=== PATIENT | male | born 1955 | race Caucasian/White ===

== ENCOUNTER 2017-09-24 07:52 | Inpatient (IN) | payer OTHER ==
[~2017-09-24] VITALS: Ht 167.6 cm; Wt 90.3 kg
--- NOTE | 2017-09-24 07:56 | ED PSYCHIATRIC COMPLAINT ---
See Addendum History of Present Illness General Chief Complaint: Psychiatric Related Complaint Stated Complaint: BIBA FOR +SI Source: patient, EMS Exam Limitations: poor historian Allergies Coded Allergies: No Known Allergies (09/24/17) Reconcile Medications No Known Home Medications Triage Nurses Notes Reviewed? yes HPI: This is a 62-year-old male with history of stroke approximately 2 years ago, not on medications for at least 2-6 months who presents by EMS from somewhere in [place]. Patient states that he was lying on the side of the road and called the ambulance because he wanted to kill himself. Patient states he has been homeless for about a year now but has been staying here and there. He states that he doesn't want to live in this miserable world anymore. No history of treated anxiety or depression. He has never been suicidal before. He states he has not seen his doctor in over 2 months and doesn't even recall who it is. He is not on any daily medications. He states he lives with chronic pain in his right arm and right leg. Today he was at his sister's house but left early in the morning while his sister and her were sleeping. He then called for help from the road. Denies any EtOH or substance abuse. (Landry GARCÍA,Raven) Vital Signs & Intake/Output Vital Signs & Intake/Output Vital Signs Date Time Temp Pulse Resp B/P B/P Pulse O2 O2 Flow FiO2 Mean Ox Delivery Rate 09/26 1843 97.2 78 18 106/60 98 Room Air 09/26 1608 97.0 74 18 118/64 97 Room Air 09/26 1305 96.9 77 18 101/58 91 09/26 1125 96.9 74 18 91/58 91 09/26 1030 97.5 78 18 133/79 09/26 0923 97.5 78 18 133/79 95 09/26 0657 96.4 55 18 100/63 96 Room Air 09/26 0229 96.6 52 20 91/59 09/26 0032 97.4 62 20 84/48 97 Room Air 09/25 2226 98.5 56 16 125/82 94 Room Air (Diego GARCÍA,Zan) Past History Travel History Traveled to [place] past 21 day No Medical History Any Pertinent Medical History? see below for history Neurological: CVA Surgical History Surgical History: non-contributory Psychosocial History Who do you live with Sister Services at Home None What is your primary language Occitan Family History Hx Contributory? No (Raven Alatorre MD) Review of Systems Review of Systems Constitutional: Denies: chills, fever. EENTM: Reports: no symptoms. Respiratory: Reports: no symptoms. Cardiovascular: Denies: chest pain. GI: Reports: no symptoms. Genitourinary: Reports: no symptoms. Musculoskeletal: Reports: see HPI, muscle pain. Skin: Reports: no symptoms. Neurological/Psychological: Reports: no symptoms. Hematologic/Endocrine: Denies: bruising, bleeding, polyuria, polydipsia. Immunologic/Allergic: Reports: no symptoms. All Other Systems: Reviewed and Negative (Raven Alatorre MD) Physical Exam Physical Exam General Appearance: well developed/nourished, alert, awake, mild distress Head: atraumatic Eyes: Bilateral: PERRL, EOMI. Ears, Nose, Throat: normal pharynx, normal ENT inspection, hearing grossly normal Neck: normal inspection, supple Respiratory: normal breath sounds Cardiovascular: regular rate/rhythm Gastrointestinal: soft, non-tender Extremities: normal range of motion Neurological/Psychiatric: awake, alert, depressed affect Appearance/Memory/Insight: disheveled, impaired insight Behavoir/Eye Contact/Speech: cooperative, normal speech, good eye contact Thoughts/Hallucinations: no apparent hallucination Skin: intact, normal color, warm/dry SAD PERSONS SAD PERSONS Response Value Male Sex? yes 1 Age <19 or >45 years? yes 1 Depression/Hopelessness? yes 2 Single//? yes 1 Social Support? has support 0 Total 5 SAD PERSONS Done? yes (Raven Alatorre MD) Progress Differential Diagnosis: DEPRESSION, ANXIETY, SUICIDAL IDEATION, SUBSTANCE ABUSE, CHRONIC PAIN Hand-Off Endorsed To: Aris GARCÍA,Parminder Grider Endorsed Time: 1912 Pending: consult (CRISIS DISPO), other (Raven Alatorre MD) Plan of Care: Orders Procedure Date/time Status Straight Cath 09/26 0841 Active URINALYSIS 09/26 0841 Complete PROSTATIC SPECIFIC ANTIGEN 09/26 0841 Complete Continuous Observation Monitor 09/26 0730 Active Vital Signs 09/25 2244 Active Current Medications Sig/Halima Start time Last Medication Dose Stop Time Status Admin Nicotine 21 MG DAILY 09/26 1533 UNVr 09/26 (Nicoderm) 1842 Pregabalin 100 MG BID 09/25 2199 UNVr 09/26 (Lyrica) 1030 Trazodone HCl 100 MG QPM 09/25 2199 UNVr 09/25 (Desyrel) 2240 Atorvastatin Calcium 40 MG 1700 09/25 1700 UNVr 09/26 (Lipitor) 1842 Baclofen 10 MG TID 09/24 2199 UNVr 09/26 (Lioresal 10MG 184 Tablet) Aspirin 81 MG DAILY 09/24 2044 UNVr 09/26 (Aspirin) 1030 Duloxetine HCl 20 MG DAILY 09/24 2043 UNVr 09/26 (Cymbalta) 1030 Lisinopril 10 MG DAILY 09/24 2043 UNVr 09/26 (Prinivil) 1030 Laboratory Tests 09/26/17 0903: Total PSA 2.69 09/26/17 0857: Urine Color YEL, Urine Clarity CLEAR, Urine pH 6.5, Ur Specific [place] 1.020, Urine Protein NEG, Urine Ketones NEG, Urine Nitrite NEG, Urine Bilirubin NEG, Urine Urobilinogen 0.2, Ur Leukocyte Esterase NEG, Ur Microscopic EXAM NOT REQUIRED, Urine Hemoglobin NEG, Urine Glucose NEG LABX, UTOX, CRISIS CONSULTATION. 09/25/2017 7:15:37 AM Patient signed out to me by Dr. Cortez. Pending crisis reevaluation and disposition [address] WEST. GABAPENTIN INCREASED TO 600 TID, LYRICA 100 BID, TRAZADONE FOR SLEEP. (Landry GARCÍA,Raven) Hand-Off Endorsed To: Raven Alatorre MD Endorsed Time: 0700 Pending: other (bed search) Comments: Epic records reviewed from last visit [id number] medicine consultation. Medications ordered as previously prescribed. (Diego GARCÍA,Zan) Hand-Off Endorsed To: Oralia GARCÍA,Rahat Fallon Endorsed Time: 0700 Pending: consult (Aris GARCÍA,Parminder Grider) Comments: 09/26/2017 7:31:20 AM patient signed out to me by Dr. Hurst at shift change management lead. 09/26/2017 8:39:59 AM I was asked to see patient regarding difficulty urinating. Patient states that the urine is dribbling out and he is urinating only a small amount. I asked if he had any history of prostate enlargement but he does not know since he hasn't seen a primary care physician for quite a while. Digital rectal examination reveals enlarged but otherwise normal consistency prostate. I suspect BPH. 09/26/2017 8:34:28 PM patient signed out to Dr. Mcbride at shift change management lead. (Oralia GARCÍA,Rahat Fallon) Departure Departure Condition: Stable Referrals: Daisha Healy MD (PCP/Family) Departure Forms: Customer Survey General Discharge Information Prescriptions: Current Visit Scripts No Known Home Medications (Landry GARCÍA,Raven) Departure Disposition: STILL A PATIENT Clinical Impression Primary Impression: Depression with suicidal ideation Secondary Impressions: Chronic pain disorder, Homeless (Diego GARCÍA,Zan) Departure Comments 09/26/17 8:15 PM The patient was signed out to me by Dr. Barton. He is pending disposition by crisis. (Rahat Mcbride DO)
[2017-09-24 08:48] LABS: ABSOLUTE BASOPHIL COUNT 0 /CUMM (0.0-0.2); ABSOLUTE EOSINOPHIL COUNT 0.2 /CUMM (0.0-0.7); ABSOLUTE GRANULOCYTE CT 4.8 /CUMM (1.4-6.5); ABSOLUTE LYMPH COUNT 1.5 /CUMM (1.2-3.4); ABSOLUTE MONOCYTE COUNT 0.7 /CUMM (0.10-0.60); BASOPHIL % 0.5 % (0.0-2.0); EOSINOPHIL % 2.9 % (0-5); GRANULOCYTE % 66.3 % (42.2-75.2); HEMATOCRIT 51.8 % (42-52); MEAN CORPUSCULAR HGB 30.2 PG (27.0-31.0); MEAN CORPUSCULAR HGB CONC 33.1 G/DL (33.0-37.0); MEAN CORPUSCULAR VOLUME 91.3 FL (80.0-94.0); MEAN PLATELET VOLUME 9.9 FL (7.4-10.4); PLATELET COUNT 170 /CUMM (130-400); RBC DISTRIBUTION WIDTH 14.8 % (11.5-14.5); RED BLOOD CELL CT 5.68 /CUMM (4.70-6.10); WHITE BLOOD CELL COUNT 7.3 /CUMM (4.8-10.8)
--- NOTE | 2017-09-24 14:35 | ED PSYCH CRISIS CONSULTATION ---
See Addendum Crisis Consult Basic Assessment Date of Consult: 09/24/17 Responsible Person/Accompanied By: self Insurance Authorization: Insurance #1: Insurance name: MASSIEL SAUNDERS Phone number: Policy number: [id number] Group number: Authorization number: ED Provider: Patient's ED Provider: Raven Alatorre MD Primary Care Physician: Patient's PCP: Daisha Healy MD PCP's Current Psychiatrist: none Chief Complaint: Psychiatric Related Complaint Patient's Quote: "I still want to kill myself" Present Illness: Patient is a 62 year old male BIBA this morning after he called the 911 saying he wanted to kill himself while lying on the ground. Pt reports he was staying with his sister and left this morning while his sister and her were still sleeping. He reports he was walking around and starting having thoughts to kill himself. Crisis met with patient who continues to express suicidal ideation with a plan to walk into traffic or to jump off a bridge. He reports he is homeless but has been staying with his sister. Crisis called and left message with sister, Leslie Sanchez ([phone]). He reports he lost everything. He lost his apartment because he wouldnt pay his rent because he went into the hospital for another matter and lost his social security disability. He reports he hasnt been able to go down to the social security office to get it reinstated because he is in chronic pain. He reports he had a stroke several years ago. During assessment, pt was complaining of pain 10 out of 10 on his right side. Per nursing notes he was medicated with Tylenol at noon. He was also medicated with Nuerontin and Lyrica. Pt became tearful and stated I want to hurt myself Im very depressed intake at several years ago but decided he needed to be closer to home so he was referred to [facility] for IOP. It does not appear that the pt followed up. Pt reports he used to live with his brother in [place] who is very sick with Cancer. Pt reports no friends; his parents are , no significant other and no children. Pt denies illicit drug use and ETOH. Utox was negative. BAL was zero. Patient re-iterated that he was in a lot of pain and wanted to . Crisis consulted with Dr. Shah. She has some concerns regarding if he is medically stable to be on an inpatient unit. Will consult with Dr. Alatorre in the ED regarding this. At this time, patient will require acute psychiatric inpatient hospitalization and a bed search will be conducted. Patient's Address: [address] [place] [address] Other Phone Number: Who Do You Live With? Sister (reports homeless, stays w/ sis) Family/Informants Interviewed: Left message for sister [phone] (Leslie Benítezi) Allergies - Coded Allergies: No Known Allergies (09/24/17) Current Medications - No Known Home Medications Laboratory Results: Laboratory Tests 09/24/17 0826: Urine Opiates Screen < 100.00, Methadone Screen < 40, Barbiturate Screen < 60, Ur Phencyclidine Scrn < 6.00, Amphetamines Screen < 100, U Benzodiazepines Scrn > 800 H, Urine Cocaine Screen < 50, Urine Cannabis Screen < 5.00 09/24/17 0822: Anion Gap 11, Estimated GFR > 60, BUN/Creatinine Ratio 18.6, Glucose 95, Calcium 9.6, Total Bilirubin 0.8, AST 28, ALT 36, Alkaline Phosphatase 68, Total Protein 7.5, Albumin 4.4, Globulin 3.1, Albumin/Globulin Ratio 1.4, CBC w Diff NO MAN DIFF REQ, RBC 5.68, MCV 91.3, MCH 30.2, MCHC 33.1, RDW 14.8 H, MPV 9.9, Gran % 66.3, Lymphocytes % 21.3, Monocytes % 9.0, Eosinophils % 2.9, Basophils % 0.5, Absolute Granulocytes 4.8, Absolute Lymphocytes 1.5, Absolute Monocytes 0.7 H, Absolute Eosinophils 0.2, Absolute Basophils 0, Serum Alcohol < 10.0 (Sonya Patterson LCSW) Addendum Note Addendum psychology clinician reassessed pt on the evening shift. Pt continues to endorse suicidal thoughts and has a plan. "Yes I feel worthless ". Pt is alert and orented x3. Pt reporting symptoms of depression and chronic pain, "I'm very depressed". Pt denies substance and alcohol use. Pt denies having psychotic thoughts, and said "I just don't want to live anymore". Pt denies a history of psychiatry hospitalization and no attempted suicides in the past. Pt states he had a stroke 3 years ago and since then his life has changed. 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 "I can't make the money I use to make and so my life has gotten a lot worst". Pt recently lost his apartment and Social Security and unable to live with his younger sister Leslie. Pt meet criteria for inpatient admission and staff will complete a bed search. (Maverick YOUNGBLOOD,Swati) Past History Past Medical History Neurological: CVA EENT: NONE Cardiovascular: NONE Respiratory: NONE Gastrointestinal: NONE Hepatic: NONE Renal: NONE Musculoskeletal: NONE Psychiatric: NONE Endocrine: NONE Blood Disorders: NONE Cancer(s): NONE PROFESSOR OF APOLOGETICS/Reproductive: NONE Past Surgical History Surgical History: non-contributory Psychosocial History Strengths/Capabilities: called 911 himself to get help Physical Limitations (Interventions): patient is unsteady of his feet, required assistance from sister to ambulate to consultation room to meet Psychiatric Treatment History Psych Treatment Psychiatric Treatment No Inpatient Treatment No Outpatient Treatment No (intake for [facility] 2013) Substance Use/Abuse History Drug Use/Abuse Substances Used/Abused No Substance Abuse Treatment Substance Abuse Treatment Past Substance Abuse [place] No Inpatient Treatment No Outpatient Treatment No (Sonya Patterson LCSW) Current Mental Status Mental Status Orientation: Current situation, Person Affect: Hopeless, Sad Speech: Soft Neuro-vegetative: Concentration Poor, Energy Decreased, Helpless, Sleep Disturbance Appearance Appearance- Dress/Hygiene: pt presents in hospital scrubs with a poke tattoo of his initials on his left forearm that he says did to himself when he was 13 Behaviors Thought Process: Tangential Thought Content: WNL Memory: Impaired Insight: Fair SI/HI Risk Assessment Past Suicidal Ideation/Attempts No Current Suicidal Ideation/Att Yes Past Homicidal Ideation/Att: No Current Homicidal Ideation/Attempts No Degree of Intent: Plan, States Intent (walk into traffic, jump bridge) Danger To: Self Risk Factors: chronic/serious med cond., lack of outcome concern, male, limited support Lethality Ratin PTSD Checklist PTSD Done? patient declined ED Management Sitter: Yes Restraints: No (Sonya Patterson LCSW) DSM5/PS Stressors/Medical Prob Diagnosis' (DSM 5, Stressors, Medical): F32.9 Unspecified Depression Homelessness Hx of Stroke (Sonya Patterson LCSW) Departure Disposition Psych Medical Clearance Date: 09/24/17 Medically Cleared at: 1400 Time Started: 1400 Time Ended: 1430 Psychiatrist Consulted: Dr. Shah Date Disposition Established: 09/24/17 Time Disposition Established: 144 Plan for Disposition - Modality: Bed Search Referrals Daisha Healy MD (PCP/Family) (Sonya Patterson LCSW)
--- NOTE | 2017-09-25 17:01 | ED PSYCHIATRIST/APRN CONSULT ---
Psychiatrist/PREFINISH OPERATOR ED Consult Assessment and Plan: ED CRISIS PROGRESS NOTE SUBJECTIVE: Pt in bed in the dark in Crisis bed, pleasant and polite with public relations writer. Interviewed with Crisis SW. Pt reports that he is "very very depressed " and "cannot think of any reason to live." Pt stated he is having contant nerve pain in his RUE and RLE, worsening since CVA 2 years ago. +SI with plan to walk into traffic. Pt states he is having racing thoughts and increased guilt that interfere with sleep. Pt interested in retarting medications. Risks /benefits of meds discussed, pt in agreement. Pt able to eat. No HI/AVH/SIB. Supportive therapy and psycheducation provided. Pt denies ssx PTSD, denies index trauma. OBJECTIVE: Per nursing, pt did well overnight without any acute events. Pt remained in behavioral control, adherent with staff instructions and medications. Pt trending toward bardycardia and hypotension, ED notified. Current Medications Sig/Halima Start time Last Medication Dose Route Stop Time Status Admin Amitriptyline HCl 25 MG BID PRN 09/24 2044 UNVr PO Aspirin 0 .STK-MED ONE 09/25 1147 DC PO Aspirin 81 MG DAILY 09/24 2044 UNVr 09/25 PO 1150 Atorvastatin Calcium 40 MG 1700 09/25 1700 UNVr 09/25 PO 1823 Baclofen 10 MG TID 09/24 2199 UNVr 09/25 PO 1823 Duloxetine HCl 20 MG DAILY 09/24 2043 UNVr 09/25 PO 1150 Gabapentin 0 .STK-MED ONE 09/25 2210 DC PO Gabapentin 600 MG Q8 09/25 2199 UNVr PO Gabapentin 0 .STK-MED ONE 09/25 1444 DC PO Gabapentin 0 .STK-MED ONE 09/25 0619 DC PO Gabapentin 300 MG Q8 09/24 1400 DCr 09/25 PO 1442 Lisinopril 0 .STK-MED ONE 09/25 1147 DC PO Lisinopril 10 MG DAILY 09/24 2043 UNVr 09/25 PO 1150 Nicotine 0 .STK-MED ONE 09/25 1147 DC TOP Nicotine 21 MG ONCE ONE 09/25 1115 DC 09/25 TOP 09/25 1116 1150 Pregabalin 0 .STK-MED ONE 09/25 2207 DC PO Pregabalin 100 MG BID 09/25 2199 UNVr PO Trazodone HCl 0 .STK-MED ONE 09/25 2208 DC PO Trazodone HCl 100 MG QPM 09/25 2199 UNVr PO Laboratory Tests 09/24/17 0826: Urine Opiates Screen < 100.00, Methadone Screen < 40, Barbiturate Screen < 60, Ur Phencyclidine Scrn < 6.00, Amphetamines Screen < 100, U Benzodiazepines Scrn > 800 H, Urine Cocaine Screen < 50, Urine Cannabis Screen < 5.00 09/24/17 0822: Anion Gap 11, Estimated GFR > 60, BUN/Creatinine Ratio 18.6, Glucose 95, Calcium 9.6, Total Bilirubin 0.8, AST 28, ALT 36, Alkaline Phosphatase 68, Total Protein 7.5, Albumin 4.4, Globulin 3.1, Albumin/Globulin Ratio 1.4, CBC w Diff NO MAN DIFF REQ, RBC 5.68, MCV 91.3, MCH 30.2, MCHC 33.1, RDW 14.8 H, MPV 9.9, Gran % 66.3, Lymphocytes % 21.3, Monocytes % 9.0, Eosinophils % 2.9, Basophils % 0.5, Absolute Granulocytes 4.8, Absolute Lymphocytes 1.5, Absolute Monocytes 0.7 H, Absolute Eosinophils 0.2, Absolute Basophils 0, Serum Alcohol < 10.0 Vital Signs Date Time Temp Pulse Resp B/P B/P Pulse O2 O2 Flow FiO2 Mean Ox Delivery Rate 09/25 2225 98.5 56 16 125/82 94 Room Air 09/25 1329 98.3 50 20 109/55 95 Room Air 09/25 1126 97.3 54 18 126/66 97 Room Air 09/25 0834 97.5 54 20 100/67 95 Room Air 09/25 0616 98.1 88 18 109/67 94 Room Air 09/25 0102 97.5 60 18 125/70 98 Room Air MSE: GENERAL: Alert and oriented, good eye contact, polite and pleasant, in hospital scrubs, appeared down, verging on tearfulness at times, SPEECH: Moderate rate and volume, normal prosody, fluent MOTOR: Right sided hemiplegia, right facial droop. Limping gait, No tics, tremors, stereotypy. MOOD: ""really really depressed" AFFECT: quite sad, but brightened at times, mood congruent, constricted range , non-labile, well related THOUGHT PROCESS: Logical, linear and goal-directed THOUGHT CONTENT: +SI with plan to walk into traffic, no HI/AVH/SIB, no apparent grandiosity, paranoia, but ruminative COGNITION: Mildly impaired d/t ruminations, racing thoughts JUDGMENT: fair INSIGHT: fair ASSESSMENT: 62 yo SM with depression, s/p CVA 2 years ago with right hemiplegia , homeless, presenting via EMS for SI and lying in street. Today, pt continues to be very depressed and hopeless, feeling useless, but feels safe in the ED. 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 Pt in agreement with starting meds for neuropathic pain, depression and insomnia. Pt hypotenive and bradycardic; Dr Hurst notified and will recheck and monitor. Pt signed VOL, bed search ongoing. -vol, maintain safety in crisis bed, bed search, vs q4h -duloxetine 20mg po qam, lyrica 100 mg po bid, gabapentin 600 mg po bid, trazodone 100mg qhs -dc amytriptyline -monitor hypotension and bradycardia, on recheck HR 56, 125/82, VS q4h while awake -sister is willing to visit if needed -may need PT consult to obtain walker/cane, please d/w medical ED -reg diet, encourage hydration
--- NOTE | 2017-09-26 16:06 | ED PSYCHIATRIST/APRN CONSULT ---
Psychiatrist/SALES CONSULTANT RESIDENTIAL MANAGER ED Consult Assessment and Plan: binding bench worker's notes reviewed. Dr. Shah's note reviewed. Case discussed with crisis workers on this shift. Patient seen at 3:21 PM. He is a 62-year-old single white male who presented to the emergency room on 09/24/17. Patient reports he is here because he is suicidal and does not want to live anymore. Reports that his brother moved out 1 month ago, leaving the patient homeless. This brother reportedly has cancer and moved in with his child and girlfriend. Patient states that he had a nervous breakdown. He states he does not know what to do, where to go or whom to speak to. He has been feeling depressed for about 2 months. Past psychiatric history: Outpatient: None. Inpatient: None. Suicides attempts: None. Substance history: Tobacco at 1 pack per day. Denies use of alcohol or drugs. Medications prior to admission: Patient reports he was taking Percocet 10 mg 3 times a day. He does not know the names of his other medications but presumably he was on pregabalin, Lipitor, baclofen, aspirin, duloxetine and lisinopril based on current medication list. He apparently was on amitriptyline but this was not continued. Allergies: No known allergies. Past medical history: CVA about 3 years ago with right hemiplegia. Possibly hypertension. Family history: Mother and father at age 59 from strokes. Denies family history of mental illness, substance abuse or suicides. Social history: Homeless. Has no children. 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 Had an 11th grade education. Reports history of several arrests when younger but does not recall what they were for. Mental status examination: The patient is a white male dressed in [employer] hospital garb. He seems to have some right facial droop. He appears to have some weakness in his right arm. He is calm, polite and cooperative. There is no psychomotor agitation or retardation. Speech is normal in volume, rate and tone. Affect is calm and depressed. Reports his right arm and leg are killing him. Reports mood as "I don't want to be here." Rates sad mood about 7/10 and anxiety 8/10. Feels hopeless, helpless and worthless. Denies feeling guilty. Reports suicidal ideation. Denies homicidal ideation. Denies auditory and visual hallucinations. Denies paranoid ideation and magical cuellar. Insight is fair. Judgment is poor. There is no apparent thought disorder or delusions. The patient is oriented 3 except he gave the date as Tuesday, 09/22 or 04/2018. Reports the place is a hospital in [place]. Cognition is grossly intact. Sleep: "I don't." Appetite: "okay, but the food here is terrible." Reports he keeps getting served grilled cheese (I've asked staff to address this). Energy: alright, not what it used to be. IMPRESSION: Major depression. Hx CVA. The patient remains suicidal. Continue bed search.
--- NOTE | 2017-09-27 14:20 | ED PSYCHIATRIST/APRN CONSULT ---
Psychiatrist/MULTIPLE DRILL OPERATOR ED Consult Assessment and Plan: The patient is a 62 years old single male who was brought into the emergency room on a police evaluation paper on September 24, 2017. He was picked up by the police when found wandering and stating that he was suicidal. We reviewed the crisis clinicians' notes, the emergency department reports, Dr. Shah's and Dr. Head's notes. We interviewed the patient. He appears as a medium height and weight male, with thinning hair, right facial droop, thinner arm on the right with deformed right hand(claw like) , sequelae from a cerebrovascular accident approximately 3 years prior to this interview. The patient appeared tired, disheveled, was cooperative with the interview. Speech is soft, well articulated, goal directed. He is complaining of tremendous pain on the right side of his body, stating that he used to be on opioid analgesics with fair effect. He was unable to obtain more prescriptions because the physician giving them to him lost their license. The patient reports feeling very depressed, worthless, useless, hopeless and helpless. 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 This came out of nowhere and it left me like this, so I cannot do anything. I cannot help myself." He expresses worrying about his future, he says he does not have close relationships, he is single and childless, he used to live with his brother who moved to his son's house being that he is suffering from terminal cancer. The patient is currently homeless even though he can stay for short periods of time with his sister. The patient continues to endorse suicidal ideation, does not have a plan, was able to contract for safety while in the hospital. The patient has good attention and concentration, intact memory, average fund of knowledge and is considered to be of average intelligence He had been in outpatient psychiatric services on and off, currently taking Cymbalta,Trazodone and lyrica. He suffers from hypercholesterolemia, hypertension, BPH and receives treatment for it as seen in his medication claims profile. The patient agrees that he needs stabilization in a safe environment. He denies use of alcohol and/or drugs. Diagnosis: Major depressive disorder, recurrent, severe Stressors include financial, housing situation, poor social support, chronic, severe medical illness. Medical problems include sequelae from CVA, hypertension, hypercholesterolemia, benign prostatic hypertrophy. His current GAF is 30% The patient will be admitted to the Inpatient Psychiatry.
--- NOTE | 2017-09-27 18:12 | IP CRISIS DIAG ASSESS PSYCH ---
Diagnostic Assessment Basic Assessment Insurance Authorization: Insurance #1: Insurance name: [employer] Phone number: Policy number: [id number] Group number: Authorization number: [id number] Primary Care Physician: Patient's PCP: Daisha Healy MD PCP's Patient's Quote: "I still want to kill myself" Present Illness: Patient is a 62 year old male BIBA this morning after he called the 911 saying he wanted to kill himself while lying on the ground. Pt reports he was staying with his sister and left this morning while his sister and her were still sleeping. He reports he was walking around and starting having thoughts to kill himself. Crisis met with patient who continues to express suicidal ideation with a plan to walk into traffic or to jump off a bridge. He reports he is homeless but has been staying with his sister. Crisis called and left message with sister, Leslie Sanchez ([phone]). He reports he lost everything. He lost his apartment because he wouldnt pay his rent because he went into the hospital for another matter and lost his social security disability. He reports he hasnt been able to go down to the social security office to get it reinstated because he is in chronic pain. He reports he had a stroke several years ago. During assessment, pt was complaining of pain 10 out of 10 on his right side. Per nursing notes he was medicated with Tylenol at noon. He was also medicated with Nuerontin and Lyrica. Pt became tearful and stated I want to hurt myself Im very depressed intake at several years ago but decided he needed to be closer to home so he was referred to [facility] for IOP. It does not appear that the pt followed up. Pt reports he used to live with his brother in [place] who is very sick with Cancer. Pt reports no friends; his parents are , no significant other and no children. Pt denies illicit drug use and ETOH. Utox was negative. BAL was zero. Patient re-iterated that he was in a lot of pain and wanted to . Crisis consulted with Dr. Shah. She has some concerns regarding if he is medically stable to be on an inpatient unit. Will consult with Dr. Alatorre in the ED regarding this. At this time, patient will require acute psychiatric inpatient hospitalization and a bed search will be conducted. Patient's Address: [address] [place] [id number] Other Phone Number: Who Do You Live With? Sister (reports homeless, stays w/ sis) Feel Safe Where You Live? Yes Feel Safe in Your Relationship Yes Marital Status: single Do You Have Children? No Primary Language? [place] Language(s) Spoken At Home: [place] Family/Informants Interviewed: Left message for sister [phone] (Leslie Sanchez) Allergies - Coded Allergies: No Known Allergies (09/24/17) Current Medications - No Known Home Medications Consequences of Psych Med Use: pt not currently in treatment Toxicology Screen Completed? Yes Results: positive (benzos) Past History Past Surgical History Surgical History non-contributory Abuse/Trauma History Trauma History/Current Trauma: Denies Psychosocial History Strengths/Capabilities: called 911 himself to get help Physical Limitations (Interventions): patient is unsteady of his feet, required assistance from sister to ambulate to consultation room to meet Psychiatric Treatment History Psych Treatment Psychiatric Treatment No Inpatient Treatment No Outpatient Treatment No (intake for [facility] 2014) Risk Factors: chronic/serious med cond., lack of outcome concern, male, limited support Substance Use/Abuse History Drug Use/Abuse minimum 12mo Hx Substances Used/Abused No Substance Abuse Treatment Substance Abuse Treatment Past Substance Abuse TX No Inpatient Treatment No Outpatient Treatment No Education History Highest Level of Education: high school/GED Preferred Learning Style: experiential Current Mental Status Mental Status Orientation: Current situation, Person Affect: Hopeless, Sad Speech: Soft Neuro-vegetative: Concentration Poor, Energy Decreased, Helpless, Sleep Disturbance Appearance Appearance- Dress/Hygiene: pt presents in hospital scrubs with a poke tattoo of his initials on his left forearm that he says did to himself when he was 13 Behaviors Thought Process: Tangential Thought Content: WNL Memory: Impaired Insight: Fair SI/HI Risk Assessment - Minimum 6mo History- Past Suicidal Ideation/Attempts No Current Suicidal Ideation/Att Yes Past Homicidal Ideation/Att: No Current Homicidal Ideation/Attempts No Degree of Intent: Plan, States Intent (walk into traffic, jump bridge) Danger To: Self Risk Factors: chronic/serious med cond., lack of outcome concern, male, limited support Lethality Ratin Needs/Init TX Plan/Goals: Psychiatric evaluation Medication assessment Individual, family and group meeting Coordinated discharge planning AUDIT-C Questionnaire: AUDIT-C Questionnaire: Response Value ETOH use in the past year Never 0 # drinks typical/day Doesn't Drink 0 6 or > drinks per occasion Never 0 Total 0 DSM5/PS Stressors/Medical Prob Diagnosis' (DSM 5, Stressors, Medical): F32.9 Unspecified Depression Homelessness Hx of Stroke Current GAF: 20 Comments: pt reports pervasive anhedonia since suffering stroke
[2017-09-27 19:12] VITALS: BP 133/73
[2017-09-27 19:54] VITALS: BP 133/73
[2017-09-28 07:50] VITALS: BP 128/72
[2017-09-28 12:03] VITALS: BP 102/74
[2017-09-28 12:23] VITALS: BP 102/74
--- NOTE | 2017-09-28 13:25 | CPS PROVIDER INIT ASMT PSYCH ---
Psychiatric Admission Chute Operator's Note Reviewed: Yes Patient Seen and Examined: Yes Identifying Information: The patient is a 62-year-old white male who was brought into the emergency room by ambulance after he called 911 Chief Complaint: The patient reportedly called 911 because and told the electric arc furnace operator that he wanted to kill himself. When he arrived in the emergency room his chief complaint was still "I still want to kill myself." Reaction to Hospitalization: Of suicide History of Present Illness Onset of Illness: Thoughts of suicide. Reportedly the patient was staying with his sister. He left the morning of his presentation to the emergency room while his sister and her were still sleeping. He reported that he was walking around and started having thoughts of wanting to kill himself. And that's when he called 911. Circumstances Leading to Admission: Thoughts of suicide looks like in the context of homelessness Problem(s) Justifying Need for Admission: Thoughts of suicide Past Psychiatric History Past Diagnosis(es)- if any: The patient reported that he has never been inpatient in a psychiatric unit before and he was not under the care of a psychiatrist. Past Precipitating Factors- if any: Homelessness - Include inpatient and outpatient treatment Treatment History: From the patient's reported looks like he had very limited history of psychiatric treatment before. History of Suicide Attempts or Gestures The patient denied any history of attempting suicide in the past Substance Abuse History: The patient denied abusing alcohol and denied abusing any substances. The patient urine toxicology screen was negative for opiates negative for barbiturates negative for amphetamines negative for PCP negative for cocaine and negative for cannabis but it was positive for benzodiazepines Allergies: Coded Allergies: No Known Allergies (09/24/17) Home Med List: The patient reported that he was not on medications at home - Include any medical condition(s) that may - impact the patient's recovery/remission Past Medical History: The patient reported that he has history of stroke and history of chronic severe pain in his right side Past History Medical History Neurological: CVA EENT: NONE Cardiovascular: NONE Respiratory: NONE Gastrointestinal: NONE Hepatic: NONE Renal: NONE Musculoskeletal: NONE Psychiatric: NONE Endocrine: NONE Blood Disorders: NONE Cancer(s): NONE JEWEL FLAT SURFACER/Reproductive: NONE History of MRSA: No History of VRE: No History of CDIFF: No Isolation History: Standard Influenza Vaccine: 05/15/17 Surgical History Surgical History: non-contributory Psychiatric Family/Social Hx Family History Psychiatric Illness: The patient reports that he does not know if there is anybody in his family who has a psychiatric illness Substance Use: denied Suicides: unknown Social History Living Situation: The patient is currently homeless he was last living with his sister Significant Relationships (family/friends): The patient has a brother but it's not clear how close they are he reports that his sister does not HAVE ANYTHING TO DO WITH HIM. Education: Unknown Vocation/Occupation: Unemployed currently Legal: the patient denied legal entanglements Healthly Behaviors Screening Tobacco Screening Tobacco Use from ED Docu: Current Daily Use Daily Tobacco Use Amount/Type: => 5 Cigarettes daily - If tobacco counseling indicated - the following topics are required. - #1 Recognizing dangerous situations. - #2 Coping Skills. - #3 Basic information about quitting. Status of Tobacco Cessation Counseling: #1, #2 AND #3 Completed Cessation Med Status Nicotine Patch Ordered Alcohol Screening - ETOH screen POS if BAL >=80 or Audit-C>= M4/F3 Audit-C Score from Diag Assess: 0 Blood Alcohol Level: Lab Serum Alcohol < 10.0 MG/DL 09/24/17 0822 Alcohol Use Screening Results: Neg per Audit C &/or BAL - If ETOH counseling indicated - the following topics are required. - #1 Express concern about the patient's - drinking at unhealthy levels, include informing - of national norms for moderate drinking: - men <= 14 drinks/week, max 4 drinks/occasion - women <= 7 drinks/week, max 3 drinks/occasion - #2 Providing feedback, including linking alcohol to - negative physical effects (liver injury, hypertension) - negative emotional effects (relationship problems and - depression) - negative occupational consequences (reduced work - performance) - #3 Advising the patient to abstain from alcohol or - to drink below national norms for moderate drinking - (as listed above). Status of ETOH Use Counseling: N/A B/C NO ETOH Use Metabolic Screening - Screen if on a Neuroleptic Medication - Metabolic screening should include: - Blood Pressure, BMI, Glucose or Hgb A1c, & a - Lipid profile from within the past 365 days. Metabolic Screening ([X]) Not Applicable, patient not on a neuroleptic. Exam and Plan Mental Status Examination Ambulation Status: Steady gait Appearance: Appropriate Attitude towards examiner: Calm and cooperative Psychomotor activity: Normal psychomotor activity Behavior: No abnormal behaviors Quality of speech: Normal speech, not pressured, not slurred Affect: Good range of affect Mood: Depressed Suicidal Ideation: Still having on and off thoughts of suicide Homicidal Ideation: Denied having thoughts of homicide Hallucinations: Denied hallucinations Paranoid/Delusional Material: Denied feeling paranoid, there were no delusions Difficulties with thought organization: No difficulties with thought organization Insight: Reasonable insight Judgment: Reasonable judgment Orientation: Oriented to time place and person Cognition: Reasonable attention and concentration and good information processing Memory Function: No gross deficits in his short-term memory Estimate of intellectual functioning: Average intelligence Assets/Strengths Patient Identified Assets/Strengths: Patient seems to be honest and likable Impression/Plan Impression and Plan: 62-year-old white male who presented to the emergency room or thoughts of suicide it seems that he might be currently homeless. He reported that he is never had inpatient psychiatric hospitalizations and never had a suicide attempts in the past. - Include all active medical diagnosis that require tx DSM 5 Diagnosis(es): Unspecified depressive disorder - Initial Tx Plan for Active Psych & Medical Conditions Treatment Plan: Inpatient psychiatric care and Safety checks every 15 minutes Nursing assessments, vital signs, and education by nursing staff And group therapy and milieu therapy by therapy staff Aftercare and discharge planning by social work staff The patient's mental status and medications will be evaluated daily by the psychiatrist The patient's Cymbalta was increased to 40 mg daily I added 1 mg of Ativan at bedtime to help the trazodone with the insomnia problem I added Reese act sodium 75 mg twice daily reduce trazodone because of the pain that he is still complaining about - Factors that would help patient function - in a less restrictive setting. Factors: Stable housing
--- NOTE | 2017-09-28 14:54 | History & Physical ---
General Information and HPI MD Statement: I have seen and personally examined GLENDY BURNETT and documented this H&P. The patient is a 62 year old M who presented with a patient stated chief complaint of suicidal ideation/depression. Source of Information: patient Exam Limitations: no limitations History of Present Illness: 62-year-old male with past medical history significant for CVA, hyperlipidemia admitted to Inpatient Psychiatry because he had suicidal ideation. Patient has been feeling very depressed. He used to live with his brother who now has moved out of the apartment. Patient has no house or place to live. He has a history of stroke about 2 years ago and since then he has right-sided weakness as well as pain. He used to be on some pain medications but now because he is not following up with his doctor, he cannot take any pain medications. Patient otherwise denies any other pains. He denies any urinary complaints. He does complete of some constipation. He is over all feeling very depressed. Allergies/Medications Allergies: Coded Allergies: No Known Allergies (09/24/17) Home Med list No Known Home Medications Past History Travel History Traveled to [place] past 21 day No Medical History Neurological: CVA EENT: NONE Cardiovascular: NONE Respiratory: NONE Gastrointestinal: NONE Hepatic: NONE Renal: NONE Musculoskeletal: NONE Psychiatric: NONE Endocrine: NONE Blood Disorders: NONE Cancer(s): NONE BEHAVIORAL SCIENCE CHAIR/Reproductive: NONE History of MRSA: No History of VRE: No History of CDIFF: No Isolation History: Standard Influenza Vaccine: 05/15/17 Surgical History Surgical History: non-contributory Past Family/Social History Family History Relations & Conditions if any BROTHER Relation not specified for: FH: cancer Psychosocial History Services at Home: None ETOH Use: denies use Illicit Drug Use: denies illicit drug use Review of Systems Review of Systems Constitutional: Reports: see HPI. EENTM: Reports: see HPI. Cardiovascular: Reports: see HPI. Respiratory: Reports: see HPI. GI: Reports: see HPI. Musculoskeletal: Reports: see HPI. Skin: Reports: see HPI. Neurological/Psychological: Reports: see HPI. Exam & Diagnostic Data Last 24 Hrs of Vital Signs/I&O Vital Signs Date Time Temp Pulse Resp B/P B/P Pulse O2 O2 Flow FiO2 Mean Ox Delivery Rate 09/28 1223 62 102/74 09/28 1203 62 102/74 09/28 0922 53 128/72 09/28 0750 95.6 53 128/72 09/27 1954 97.8 66 133/73 09/27 1912 97.8 66 133/73 09/27 1553 97.0 50 20 108/55 93 Room Air Intake & Output 09/28 1600 09/28 0800 09/28 0000 Intake Total Output Total Balance Patient 199 lb Weight Physical Exam General Appearance Alert, Oriented X3, Cooperative, No Acute Distress Skin No Rashes HEENT PERRLA Neck Supple Cardiovascular Regular Rate, Normal S1, Normal S2 Lungs Clear to Auscultation Abdomen Normal Bowel Sounds, Soft, No Tenderness Neurological Exam Findings: 4/5 strength on rue and rle. Cranial Nerves II through XII: intact Extremities No Edema Last 24 Hrs of Labs/Yemi: Laboratory Tests 09/26 09/26 0903 0857 Chemistry Total PSA (0.00 - 4.00 ng/mL) 2.69 Urines Urine Color (YEL,AMB,STR) YEL Urine Clarity (CLEAR) CLEAR Urine pH (5.0 - 8.0) 6.5 Ur Specific [place] (1.001 - 1.035) 1.020 Urine Protein (NEG,<30 MG/DL) NEG Urine Ketones (NEG) NEG Urine Nitrite (NEG) NEG Urine Bilirubin (NEG) NEG Urine Urobilinogen (0.1 - 1.0 EU/dl) 0.2 Ur Leukocyte Esterase (NEG) NEG Ur Microscopic EXAM NOT REQUIRED Urine Hemoglobin (NEG) NEG Urine Glucose (N MG/DL) NEG Assessment/Plan Assessment: 62-year-old male with past history significant for CVA about 2 years ago, lipidemia, chronic pain, depression admitted to Inpatient Psychiatry with suicidal ideation and increasing depression. Psych management will leave up to psychiatry. Patient is combining of pain in the right hand and right otic symmetry. Patient already on Lyrica. He was started Voltaren. I will defer this to psychiatry to see if they want to add Percocet. Patient used to take Percocet previously according to him. I will also check his lipid profile. Patient already on statin As Ranked By This Provider Problem List: 1. Anxiety 2. Depression with suicidal ideation 3. Chronic pain disorder 4. History of CVA (cerebrovascular accident) 5. Homeless Miscellaneous Miscellaneous Documentation Attending Case Discussed With: Ayde Fuentes M.D. Primary Care Physician: Daisha Healy MD Patient sees these Specialists unknown Level of Patient Care: KRYSTAL Childers
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
[2017-09-28 16:00] VITALS: BP 110/64
--- NOTE | 2017-09-28 16:51 | SOCIAL WORKER PROG NOTE PSYCH ---
Social Work Progress Note Progress Note 11:49am This process description writer met with patient. He reported that he had a stroke about 2 years ago, significantly impacting his independence and ability to work. Patient reported that he came to the hospital because "I'm just greatly depressed." He reported anhedonia. Patient stated that he makes $750 per month and that his brother recently moved out. He expressed financial concerns and is interested in moving. Patient did not identify any family members or friends that he could stay with and is not interested in living in a group home, even for a short time. Patient denied current SI. He denied HI/AH/VH. He denied any substance use. Patient did not identify any family or friends that could be invited for a family meeting.
[2017-09-28] MEDS ORDERED: BACLOFEN10 M1 PO (17:33)
[2017-09-28] MEDS ORDERED: TRAZODONE HCL100 M1 PO (17:34)
[2017-09-28] MEDS ORDERED: TAMSULOSIN HCL0.4 M1 PO (17:37)
[2017-09-28] MEDS ORDERED: ATORVASTATIN CA40 M1 PO (17:38)
[2017-09-28] MEDS ORDERED: AVODART0.5 M1 PO (17:39)
[2017-09-28] MEDS ORDERED: LYRICA300 M1 PO (17:40)
[2017-09-28] MEDS ORDERED: LISINOPRIL10 M1 PO (17:41)
[2017-09-28 19:01] VITALS: BP 109/59
--- NOTE | 2017-09-29 07:37 | CP SOUTH PROGRESS NOTE PSYCH ---
Psych (Inpt) Progress Note Progress Note Laboratory Tests Laboratory Tests 09/29 06 Chemistry Triglycerides (<150 mg/dL) 160 H Cholesterol (< 200 MG/DL) 130 LDL Cholesterol, Calc (65 - 129 mg/dL) 60 L HDL Cholesterol (40 - 60 mg/dL) 38 L Cholesterol/HDL Ratio (0.00 - 4.88 %) 3 Vital Signs Date Time Temp Pulse Resp B/P Pulse O2 O2 Flow FiO2 Ox Delivery Rate 09/29 1136 97.2 56 20 130/75 09/29 0817 97.2 56 130/75 09/28 1901 97.1 67 109/59 09/28 1600 60 110/64 09/28 1223 62 102/74 09/28 1203 62 102/74 The patient's care and treatment plan was discussed in the morning team meeting which included and nursing staff and social work staff group therapy and psychiatrist Mental status examination: The patient was lying in bed around and noontime. He reported that he didn't sleep well last night. He reported that's why he is resting at the present time. He is focused on physical pain on in his right side mostly in his upper extremity. He was pleading for Percocets he reported that he was taking them on the outside. The prescription monitoring program website indicated that he was receiving the mental Jevon and it looks like his primary care physician was prescribing them then he referred him to [facility] they prescribed oxycodone one month and then he was switched after that to Lyrica. The patient reported that he is not going back there The patient reported that his mood remains depressed, but he is feeling better than when he first came in. He denied thoughts of suicide but he acknowledged that he had some thoughts of suicide in the past 24 hours. He denied hallucinations. There was no evidence of paranoia and there was no evidence of formal thought disorder. The patient was oriented to time place and person he seems to have reasonable attention and concentration and no evidence of short-term memory impairment. Assessment: 62-year-old white male who was admitted through the emergency room for voicing thoughts of suicide. It's not clear not clear at this point whether the patient is homeless or not he was last staying with his sister but it seems that it might not be an option at this point. Plan: Continue inpatient psychiatric care with safety checks every 15 minutes Group therapy and milieu therapy Nursing assessments vital signs and education by nursing staff Aftercare planning and collateral information by the social work staff and Patient psychiatrist will evaluate the patient's mental status daily and monitor medications Add Ultram 50 mg 3 times a day Increase diclofenac to 75 mg TID Continue Cymbalta 40 mg daily D/C Trazodone Start Amitriptyline 75 mg at bedtime
[2017-09-29 08:17] VITALS: BP 130/75
[2017-09-29 12:02] VITALS: BP 109/67
[2017-09-29 15:51] VITALS: BP 106/57
--- NOTE | 2017-09-29 16:53 | SOCIAL WORKER PROG NOTE PSYCH ---
Social Work Progress Note Progress Note SW met with pt. He reports he is adjusting ok to the unit and feeling a little better since initial presentation in the ED. Pt discussed concern that he has no where to go upon discharge and he doesn't want to live "in a dump". Pt reports eturning to his sister's home isn't an option and doesn't think he would include her in a family meeting. He reported difficulty sleeping because of pain and is hopeful something strong will be ordered so he can sleep better. He reports good appetite. He expressed interest in wanting to discuss options on where he could live once ready for CPS discharge.
[2017-09-29 19:50] VITALS: BP 114/59
[2017-09-30 07:58] VITALS: BP 106/64
--- NOTE | 2017-09-30 09:01 | CP SOUTH PROGRESS NOTE PSYCH ---
Psych (Inpt) Progress Note Progress Note Vital Signs Date Time Temp Pulse Resp B/P 09/30 0844 96.1 57 20 106/64 09/30 0758 96.1 57 106/64 09/29 1950 97.4 69 114/59 09/29 1551 61 106/57 09/29 1202 51 109/67 Mental status examination: Jagjit was still lying in bed at 2:00PM He denied feeling overmedicated, "there is just nothing to do around here." He reported that he did sleep well last night (with amitriptyline). He did not bring up the pain in his Rt. Upper Extremity today Jagjit reported that his mood remains depressed, denied thoughts of suicide in the past 24 hours. He denied hallucinations. There was no evidence of paranoia and there was no evidence of a formal thought disorder. Jagjit was oriented to time, place, and person. He seemed to have reasonable attention and concentration and no evidence of short-term memory impairment. Assessment: Jagjit is a 62-year-old White man who was admitted on 2017 for voicing thoughts of suicide. The trigger appears to be homelessness. Plan Update: Continue Ultram 50 mg 3 times a day Continue diclofenac 75 mg TID Continue Cymbalta 40 mg daily Continue Amitriptyline 75 mg at bedtime Continue inpatient psychiatric care with safety checks every 15 minutes Continue Group therapy and milieu therapy Continue Nursing assessments vital signs and education by nursing staff Aftercare planning and collateral information by the social work staff and Patient psychiatrist will evaluate the patient's mental status daily and monitor medications Plan: Continue inpatient psychiatric care with safety checks every 15 minutes Group therapy and milieu therapy Nursing assessments vital signs and education by nursing staff Aftercare planning and collateral information by the social work staff and Patient psychiatrist will evaluate the patient's mental status daily and monitor medications Add Ultram 50 mg 3 times a day Increase diclofenac to 75 mg TID Continue Cymbalta 40 mg daily D/C Trazodone Start Amitriptyline 75 mg at bedtime
[2017-09-30 11:48] VITALS: BP 98/52
[2017-09-30 15:45] VITALS: BP 95/53
[2017-09-30 16:41] VITALS: BP 111/57
[2017-09-30 19:54] VITALS: BP 106/57
[2017-10-01 07:47] VITALS: BP 110/60
--- NOTE | 2017-10-01 11:29 | CP SOUTH PROGRESS NOTE PSYCH ---
Psych (Inpt) Progress Note Progress Note Include the following elements, when applicable: Involvement in the active treatment of the patient with behavioral observations of the patient and the patient's response to the treatment. Review of the ongoing treatment process in the context of the treatment plan. Indication of how multi-disciplinary staff members are carrying out the treatment plan. Plans for future interventions and recommendations for revision of the treatment plan. Liaison with other physicians/providers. Progress Note: Pt notes that he slept very poorly overnight. Spoke at length about the "pins and needles" type pain in he experienceing. Notes SI prior to hospitalization and feeling as though "life was not worth lving," but now feeling much better. Denies SI or HI. Current Medications Sig/Halima Start time Last Medication Dose Route Stop Time Status Admin Amitriptyline HCl 75 MG AT BEDTIME 09/29 2200 AC 09/30 PO 2150 Aspirin 81 MG DAILY 09/28 1000 AC 10/01 PO 0848 Atorvastatin Calcium 40 MG 1700 09/25 1700 AC 09/30 PO 1639 Baclofen 10 MG TID 09/24 2200 AC 10/01 PO 0849 Diclofenac Sodium 75 MG TID 09/29 1600 AC 10/01 PO 0850 Duloxetine HCl 40 MG DAILY 10/02 1000 UNVr PO Duloxetine HCl 40 MG DAILY 09/29 1000 DC 10/01 PO 0849 Ibuprofen 800 MG TIDPRN PRN 09/27 1315 AC 09/28 PO 1821 Lidocaine 1 PAT DAILY 10/01 1125 UNVr EXT Lisinopril 10 MG DAILY 09/24 2044 AC 10/01 PO 0850 Lorazepam 1 MG AT BEDTIME 09/28 2200 AC 09/30 PO 2149 Melatonin 5 MG AT BEDTIME 10/01 2200 UNVr PO Methyl Salicylate 1 MIRI TIDPRN 10/01 1130 UNVr TOP Methyl Salicylate 1 MIRI TIDPRN 10/01 1130 UNVr TOP Nicotine 21 MG DAILY 09/26 1533 AC 10/01 TOP 0849 Pregabalin 100 MG BID 09/25 2200 AC 10/01 PO 0849 Tramadol HCl 50 MG TID 09/29 1151 AC 10/01 PO 0849 Trazodone HCl 50 MG AT BEDTIME 10/01 2200 UNVr PO Laboratory Tests 09/29 0606 Chemistry Triglycerides (<150 mg/dL) 160 H Cholesterol (< 200 MG/DL) 130 LDL Cholesterol, Calc (65 - 129 mg/dL) 60 L HDL Cholesterol (40 - 60 mg/dL) 38 L Cholesterol/HDL Ratio (0.00 - 4.88 %) 3 Vital Signs Date Time Temp Pulse Resp B/P B/P Pulse O2 O2 Flow FiO2 Mean Ox Delivery Rate 10/01 0850 97.3 75 20 110/60 10/01 0747 97.3 75 110/60 09/30 1954 97.3 72 106/57 09/30 1641 64 111/57 09/30 1545 85 95/53 09/30 1148 64 98/52 MSE General appearance: fair hygiene and grooming; Attitude: cooperative; Eye contact: appropriate; Movement: no psychomotor agitation or slowing; Speech: nl fluency, nl rate/rhythm, nl volume, nl prosody; Mood: "OK" Affect: irritable, flat, appropriate, constricted, non-labile, congruent; Thought process: linear and goal-directed; Thought content: denied SI or HI, no paranoid ideation; Perception: denied hallucinations- auditory, visual, does not appear to be responding to internal stimuli; I/J: limited A/P: Pt with MDD s/p CVA with R sided weakness and neuropathic pain. -Start analegic balm to R arm and leg TID PRN for pain -Start trazodone and melatonin for sleep -Continue current medication regimen -Encourage integration into the milieu
[2017-10-01 12:23] VITALS: BP 116/54
[2017-10-01 15:38] VITALS: BP 116/65
[2017-10-01 19:36] VITALS: BP 133/66
[2017-10-02 08:05] VITALS: BP 123/72
[2017-10-02 12:11] VITALS: BP 110/66
--- NOTE | 2017-10-02 13:15 | CP SOUTH PROGRESS NOTE PSYCH ---
Psych (Inpt) Progress Note Progress Note Include the following elements, when applicable: Involvement in the active treatment of the patient with behavioral observations of the patient and the patient's response to the treatment. Review of the ongoing treatment process in the context of the treatment plan. Indication of how multi-disciplinary staff members are carrying out the treatment plan. Plans for future interventions and recommendations for revision of the treatment plan. Liaison with other physicians/providers. Progress Note: Pt notes that he slept much better. Denies SI or HI. Still stuggling the neuropathic pain. Current Medications Sig/Halima Start time Last Medication Dose Route Stop Time Status Admin Amitriptyline HCl 75 MG AT BEDTIME 09/29 2199 AC 10/01 PO 2115 Aspirin 81 MG DAILY 09/28 1000 AC 10/02 PO 1026 Atorvastatin Calcium 40 MG 1700 09/25 1700 AC 10/01 PO 1708 Baclofen 10 MG TID 09/24 2200 AC 10/02 PO 1028 Diclofenac Sodium 75 MG TID 09/29 1600 AC 10/02 PO 1028 Duloxetine HCl 40 MG DAILY 10/02 1000 AC 10/02 PO 1027 Ibuprofen 800 MG TIDPRN PRN 09/27 1315 AC 09/28 PO 1821 Lidocaine 1 PAT DAILY 10/01 1125 AC 10/02 EXT 1027 Lisinopril 10 MG DAILY 09/24 2044 AC 10/02 PO 1028 Lorazepam 1 MG AT BEDTIME 09/28 2200 AC 10/01 PO 2115 Melatonin 5 MG AT BEDTIME 10/01 2200 AC 10/01 PO 2115 Methyl Salicylate 1 MIRI TID PRN 10/01 1600 AC TOP Methyl Salicylate 1 MIRI TID PRN 10/01 1130 AC TOP Nicotine 21 MG DAILY 09/26 1533 AC 10/02 TOP 1028 Pregabalin 100 MG BID 09/25 2200 AC 10/02 PO 1028 Tramadol HCl 50 MG TID 09/29 1151 AC 10/02 PO 1027 Trazodone HCl 50 MG AT BEDTIME 10/01 220 AC 10/01 PO 2114 Vital Signs Date Time Temp Pulse Resp B/P B/P Pulse O2 O2 Flow FiO2 Mean Ox Delivery Rate 10/02 1211 68 110/66 10/02 1028 58 118/62 10/02 0805 96.2 52 123/72 10/01 1936 97.6 65 133/66 10/01 1538 64 116/65 MSE General appearance: fair hygiene and grooming; Attitude: cooperative; Eye contact: appropriate; Movement: no psychomotor agitation or slowing; Speech: nl fluency, nl rate/rhythm, nl volume, nl prosody; Mood: "I feel good, I slept good" Affect: much less irritable, flat, appropriate, constricted, non-labile, congruent; Thought process: linear and goal-directed; Thought content: denied SI or HI, no paranoid ideation; Perception: denied hallucinations- auditory, visual, does not appear to be responding to internal stimuli; I/J: limited A/P: Pt with MDD s/p CVA with R sided weakness and neuropathic pain with improved mood and sleep. -Continue current medication regimen -Encourage integration into the milieu
[2017-10-02 15:27] VITALS: BP 118/69
[2017-10-02 20:09] VITALS: BP 109/63
[2017-10-03 07:48] VITALS: BP 110/67
[2017-10-03 11:52] VITALS: BP 100/54
--- NOTE | 2017-10-03 13:49 | CP SOUTH PROGRESS NOTE PSYCH ---
Psych (Inpt) Progress Note Progress Note Vital Signs Date Time Temp Pulse Resp B/P B/P Pulse O2 O2 Flow FiO2 Mean Ox Delivery Rate 10/03 1152 56 100/54 10/03 0752 95.5 50 20 110/67 10/03 0748 95.5 50 110/67 10/02 2008 97.2 76 109/63 10/02 1527 73 118/69 Mental status examination: Jagjit was lying in bed, denied feeling overmedicated, reported that he did not sleep well last night (despite amitriptyline). reported pain in his Rt. Upper Extremity today Jagjit reported that his mood remains depressed, denied thoughts of suicide in the past 24 hours. He denied hallucinations, there was no evidence of paranoia and there was no evidence of a formal thought disorder, Jagjit was oriented to time, place, and person. He seemed to have reasonable attention and concentration and no evidence of short-term memory impairment. Assessment: Jagjit is a 62-year-old White man who was admitted on 2017 for voicing thoughts of suicide. The trigger appears to be homelessness. Plan Update: D/C Ativan, change to diazepam Add Oxycodone 5 mg BID Continue Ultram 50 mg 3 times a day Continue diclofenac 75 mg TID Increase Cymbalta to 60 mg daily D/C Amitriptyline Increase Trazodone to 100 mg at bedtime Continue inpatient psychiatric care with safety checks every 15 minutes Continue Group therapy and milieu therapy Continue Nursing assessments vital signs and education by nursing staff Aftercare planning and collateral information by the social work staff and Patient psychiatrist will evaluate the patient's mental status daily and monitor medications Patient is a 62 year old male BIBA this morning after he called the 911 saying he wanted to kill himself while lying on the ground. Pt reports he was staying with his sister and left this morning while his sister and her were still sleeping. He reports he was walking around and starting having thoughts to kill himself. Crisis met with patient who continues to express suicidal ideation with a plan to walk into traffic or to jump off a bridge. He reports he is homeless but has been staying with his sister. Crisis called and left message with sister, Leslie Sanchez ([phone]). He reports he lost everything. He lost his apartment because he wouldnt pay his rent because he went into the hospital for another matter and lost his social security disability. He reports he hasnt been able to go down to the social security office to get it reinstated because he is in chronic pain. He reports he had a stroke several years ago. During assessment, pt was complaining of pain 10 out of 10 on his right side. Per nursing notes he was medicated with Tylenol at noon. He was also medicated with Nuerontin and Lyrica. Pt became tearful and stated I want to hurt myself Im very depressed intake at several years ago but decided he needed to be closer to home so he was referred to [facility] for IOP. It does not appear that the pt followed up. Pt reports he used to live with his brother in [place] who is very sick with Cancer. Pt reports no friends; his parents are , no significant other and no children. Pt denies illicit drug use and ETOH. Utox was negative. BAL was zero.
[2017-10-03 15:48] VITALS: BP 102/64
--- NOTE | 2017-10-03 16:50 | SOCIAL WORKER PROG NOTE PSYCH ---
Social Work Progress Note Progress Note This residential mortgage underwriter attempted to meet with patient earlier in the day, however, patient was sleeping. 4:04pm This residential mortgage underwriter met with patient. Patient continues to maintain that he is not interested in a jail. Prior to this meeting, KRYSTAL Murphy, informed this residential mortgage underwriter that the patient's brother in law expressed concerns to her about patient's homelessness. This residential mortgage underwriter and Katherine discussed this with the patient during this meeting, to which patient stated that he is not interested in this residential mortgage underwriter speaking with his [id number] due to interpersonal stressors in reference to the patient's relationship with his sister. Patient was informed that a referral to [facility] will be submitted and this residential mortgage underwriter will contact them to schedule a meeting. Patient expressed interest in finding a room. This residential mortgage underwriter also informed patient that a referral may be made to the [facility]. Patient denied HI/AH/VH. When asked about SI, patient stated, "life sucks," and did not expand further despite encouragement. Patient stated that he had been experiencing arm pain (associated with his stroke) and recently received pain medication from the nurse.
[2017-10-03 17:37] VITALS: BP 131/67
[2017-10-03 19:53] VITALS: BP 113/67
[2017-10-04 07:43] VITALS: BP 140/77
[2017-10-04 11:56] VITALS: BP 119/68
--- NOTE | 2017-10-04 13:53 | CP SOUTH PROGRESS NOTE PSYCH ---
Psych (Inpt) Progress Note Progress Note Vital Signs Date Time Temp Pulse Resp B/P 10/04 1156 82 119/68 10/04 0808 95.5 57 20 140/77 10/04 0743 95.5 57 140/77 10/03 1952 97.3 73 113/67 Mental Status examination: Jajgit reported that he slept well last night. He reported that his arm pain is much better. He was lying in bed, reported that his mood is better He denied thoughts of suicide in the past 24 hours. He denied hallucinations, there was no evidence of paranoia and there was no evidence of a formal thought disorder, Jagjit was oriented to time, place, and person. He seemed to have reasonable attention and concentration and no evidence of short-term memory impairment. Assessment & Progress: Jagjit is a 62-year-old single White man who was admitted on 2017 for voicing thoughts of suicide. The trigger appears to be homelessness. He has shown moderate improvement and has not been voicing thoughts of suicide for a couple of days Plan Update: Continue diazepam Add Oxycodone 5 mg BID Continue Ultram 50 mg 3 times a day Continue diclofenac 75 mg TID Continue Cymbalta 60 mg daily Trazodone 100 mg at bedtime Continue inpatient psychiatric care with Continue Group therapy and milieu therapy Nursing staff & Nurse's Aides: Continue Nursing assessments vital signs and education by nursing staffsafety checks every 15 minutes Aftercare planning and collateral information by the social work staff and Patient psychiatrist will evaluate the patient's mental status daily and monitor medications
--- NOTE | 2017-10-04 13:59 | SOCIAL WORKER PROG NOTE PSYCH ---
Social Work Progress Note Progress Note Member Name Member ID Member Subscriber Name Subscriber ID GLENDY BURNETT [id number] 1955 GLENDY BURNETT [id number] Pended Authorization # Client Authorization # Type of Request [id number] CONCURRENT Date of Admission/ Start of Services Requested From Submission Date 09/27/2017 10/04/2017 10/04/2017
[2017-10-04 15:29] VITALS: BP 110/55
--- NOTE | 2017-10-04 18:07 | SOCIAL WORKER PROG NOTE PSYCH ---
Social Work Progress Note Progress Note 3:58pm This job specification writer met with patient. He was informed that [facility] was unable to accept the referral due to the PCP that he has. Patient stated that he is not interested in returning to his primary care provider as "we cut ties." He expressed interested in a new primary care provider and was agreeable to a referral to [facility]. Patient stated that his mood is "not bad" and he denied SI/HI/AH/VH. Patient stated that he did not want this job specification writer to speak with his brother in law at this time. 5:20pm Patient requested this job specification writer to meet with him and his brother in law, Papi. This job specification writer clarified with the patient regarding his previous request not to speak with his brother in law. Patient stated that he had decided that he did want him to be involved and provided this job specification writer with authorization to meet with the brother in law. This job specification writer and patient informed his brother in law of the resources that have been discussed thus far, including housing options/fpc. Papi stated that he was not able to offer the patient to stay with him until he speaks with his (the patient's sister). Upon his request, he was provided with the number to KRYSTAL Childers in order to follow up with this job specification writer.
[2017-10-04 19:55] VITALS: BP 94/67
[2017-10-05 07:53] VITALS: BP 114/67
--- NOTE | 2017-10-05 11:43 | CP SOUTH PROGRESS NOTE PSYCH ---
Psych (Inpt) Progress Note Progress Note Vital Signs Date Time Temp Pulse B/P 10/05 0843 69 114/67 10/05 0753 95.8 69 114/67 10/04 1955 98.3 74 94/67 10/04 1529 81 110/55 10/04 1156 82 119/68 Jagjit's treatment and progress on the inpatient psychiatric unit was reviewed by the treatment team, the treatment team included nursing staff, social work staff , group and activity therapist, and psychiatrist. Mental Status examination: For the second day rasheed, Jagjit reported that he slept well last night and that his arm pain is much better. He also reported that his mood is better and he denied thoughts of suicide. He denied hallucinations, there was no evidence of paranoia and there was no evidence of a formal thought disorder, Jagjit was oriented to time, place, and person. reasonable attention and concentration & NO evidence of short-term memory impairment. Assessment & Progress: Jagjit is a 62-year-old single White man who was admitted to the inpatient psychiatric unit on 2017 for voicing thoughts of suicide. The trigger appears to be homelessness. He has shown moderate improvement and has not been voicing thoughts of suicide for 3 days now Treatment Plan Update: Increase Cymbalta to 80 mg daily (60mg in AM and 20 mg at bedtime) Change Oxycodone 5 mg to PRN Change Baclofen to 10 mg Q8 hours PRN muscle pain or spasms Continue Ultram 50 mg 3 times a day Continue diclofenac 75 mg TID Trazodone 100 mg at bedtime Continue diazepam at bedtime Nursing staff & Nurse's Aides: Continue Nursing assessments vital signs and education by nursing staffsafety checks every 15 minutes Aftercare planning and collateral information by the social work staff and Patient psychiatrist will evaluate the patient's mental status daily and monitor medications
[2017-10-05 12:09] VITALS: BP 100/55
--- NOTE | 2017-10-05 15:12 | SOCIAL WORKER PROG NOTE PSYCH ---
Social Work Progress Note Progress Note 11:10am This pattern chart writer met with patient. Patient stated identified a primary interest of staying with his [id number] and sister while exploring more permanent housing. He is waiting to hear from his [id number] about whether or not this is an option. 211/Fdc - patient maintains that he is not interested in going to a alf. Once he has spoke with his [id number], he will consider the following options. - [facility]: patient would like to be referred to [facility] and follow up with [facility] after attending the appointment - [facility]: patient is interested in a referral - [facility]: patient would like to contact [facility] and inquire about their services - [facility]: patient would like to learn more about their housing options /resources - [facility]/nursing facility: patient is not interested in a fci/assisted living at this time - Social Security: patient will call to inquire about his status Patient signed WILFREDO's for the following: - [facility] - [facility] - [facility] - [facility]
[2017-10-05 15:37] VITALS: BP 101/58
--- NOTE | 2017-10-05 16:32 | SOCIAL WORKER PROG NOTE PSYCH ---
Social Work Progress Note Progress Note [facility] Concurrent Review: Member Name Member ID Member Subscriber Name Subscriber ID GLENDY BURNETT [id number] 1955 GLENDY BURNETT [id number] Pended Authorization # Client Authorization # Type of Request [id number] CONCURRENT Date of Admission/ Start of Services Requested From Submission Date 09/27/2017 10/05/2017 10/05/2017 Level of Service Type of Service Level of Care Type of Care INPATIENT/[facility] Mental Health Inpatient [facility]patient [facility] - [facility]patient [facility]
--- NOTE | 2017-10-05 16:37 | SOCIAL WORKER PROG NOTE PSYCH ---
Social Work Progress Note Progress Note 4:17pm VM was left for Keyonna Yanes at [facility] in [place] inquiring about housing resources, .
[2017-10-05 19:51] VITALS: BP 107/57
[2017-10-06 07:56] VITALS: BP 110/78
[2017-10-06 11:59] VITALS: BP 104/70
--- NOTE | 2017-10-06 12:47 | CP SOUTH PROGRESS NOTE PSYCH ---
Psych (Inpt) Progress Note Progress Note Vital Signs Date Time Temp Pulse B/P 10/06 1159 63 104/70 10/06 0802 74 110/78 10/06 0756 96.4 74 110/78 10/05 1951 97.8 69 107/57 Jagjit's treatment and progress on the inpatient psychiatric unit was reviewed by the treatment team, the treatment team included nursing staff, social work staff , group and activity therapist, and psychiatrist. Mental Status examination: Jagjit reported constipation. Slept well last night. He reported that his mood is "good" and denied thoughts of suicide. He denied hallucinations, no evidence of paranoia and there was no evidence of a formal thought disorder, Jagjit was oriented to time, place, and person. he seemed to have reasonable attention and concentration & no evidence of short- term memory impairment. Assessment & Progress: Jagjit is a 62-year-old single White man who was admitted to the inpatient psychiatric unit on 2017 for voicing thoughts of suicide. The trigger appears to be homelessness. He has shown moderate improvement and has not been voicing thoughts of suicide for 3 days now Treatment Plan Update: Continue Cymbalta 80 mg daily (60 mg in AM and 20 mg at bedtime) Continue Oxycodone 5 mg to PRN Continue Baclofen 10 mg Q8 hours PRN muscle pain or spasms Continue Ultram 50 mg 3 times a day Continue diclofenac 75 mg TID Trazodone 100 mg at bedtime Continue diazepam at bedtime Nursing staff & Nurse's Aides: Continue Nursing assessments vital signs and education by nursing staffsafety checks every 15 minutes Aftercare planning and collateral information by the social work staff and Patient psychiatrist will evaluate the patient's mental status daily and monitor medications medications
--- NOTE | 2017-10-06 15:35 | SOCIAL WORKER PROG NOTE PSYCH ---
Social Work Progress Note Progress Note [facility] concurrent entered: Member Name Member ID Member Subscriber Name Subscriber ID GLENDY BURNETT [id number] 1955 GLENDY BURNETT [id number] Pended Authorization # Client Authorization # Type of Request [id number] CONCURRENT Date of Admission/ Start of Services Requested From Submission Date 09/27/2017 10/06/2017 10/06/2017 Level of Service Type of Service Level of Care Type of Care INPATIENT/[facility] Mental Health Inpatient Inpatient [facility] - Inpatient [facility]
[2017-10-06 15:58] VITALS: BP 129/80
--- NOTE | 2017-10-06 16:40 | SOCIAL WORKER PROG NOTE PSYCH ---
Social Work Progress Note Progress Note This engineering writer met with patient. He reported that his mood is "all mixed up," feeling anxious, depressed and overhwelmed. Patient denied SI/HI/AH/VH. Patient was provided with the social security phone number, which he called, and stated that he was informed that they would not provide any information over the phone and that he would need to come to their office in person. Patient stated that he has not spoken with his brother in law about the possibility of staying with them. With his authorization, this engineering writer spoke with Papi Sanchez ([phone]) by phone, who stated that a decision has not yet been made regarding this matter. Papi suggested that his (the patient' s sister) is contacted to discuss the matter further. This engineering writer informed the patient of this. Patient stated that he would try to contact his sister and/or Papi later this evening. He maintains that he is not willing to go to a custodial or to a SNF. Patient was also encouraged to reconsider any options that have been discussed thus far.
[2017-10-06 20:14] VITALS: BP 95/60
[2017-10-07 00:07] VITALS: BP 103/58
[2017-10-07 06:47] VITALS: BP 137/72
--- NOTE | 2017-10-07 08:28 | CP SOUTH PROGRESS NOTE PSYCH ---
Psych (Inpt) Progress Note Progress Note Vital Signs Date Time Temp Pulse B/P 10/07 0647 62 137/72 10/07 0007 64 103/58 10/06 2013 96.8 83 95/60 10/06 1558 75 129/80 10/06 1159 63 104/70 Nursing staff, social work staff, group and activity therapist, and psychiatrist discussed Jagjit's treatment and progress on the inpatient psychiatric unit Mental Status Examination: Jagjit reported that "[his] Rt. hand is killing [him]" (i.e. very painful), he said his sleep last night was very poor because of that. He reported that he feels anxious and somewhat hopeless (mood worsening may be related to the discontinuation of Ultram 2 days ago) (?) denied thoughts of suicide. He denied hallucinations. There was no evidence of paranoia and there was no thought disorder, Jagjit was oriented to time, place, and person. He seemed to have reasonable attention and concentration & no evidence of short- term memory impairment. Assessment & Progress: Jagjit is a 62-year-old single White man who was admitted to the inpatient psychiatric unit on 2017 for voicing thoughts of suicide. The trigger appears to be homelessness. He has shown moderate improvement and has not been voicing thoughts of suicide for 3 days now Treatment Plan Update: Change Cymbalta to 80 mg daily (all in AM) Change Oxycodone to 10 mg at 2 PM and 8 PM Continue Baclofen 10 mg Q8 hours PRN muscle pain or spasms Resume Ultram 50 mg 3 times a day 8AM, 4PM and 10 PM Continue diclofenac 75 mg TID Trazodone 100 mg at bedtime Continue diazepam at bedtime Nursing staff & Nurse's Aides: Continue Nursing assessments vital signs and education by nursing staffsafety checks every 15 minutes Aftercare planning and collateral information by the social work staff and Patient psychiatrist will evaluate the patient's mental status daily and monitor medications
[2017-10-07 11:56] VITALS: BP 95/58
--- NOTE | 2017-10-07 13:47 | IP INCIDENTAL NOTE PSYCH ---
Incidental Note Notation: Erratum/Correction: Ultram was not discontinued deliberately but yesterday because of non- renewal (error by omission)
[2017-10-07 15:47] VITALS: BP 133/74
--- NOTE | 2017-10-07 17:11 | SOCIAL WORKER PROG NOTE PSYCH ---
Social Work Progress Note Progress Note 3:19pm This race and sports book writer met with patient. He stated that he had been unable to reach his brother in law about whether he will be permitted to stay with him and his (the patient's sister). Patient called his brother in law, Papi ([phone]), while meeting with this race and sports book writer. Papi stated that the patient would be allowed to stay with them, however, he had not yet spoken with his (who was not home). Patient asked if he could be discharged today and was informed that Dr. Doran had already left for the day and that discharge plans would need to be solidified. Patient stated that he would like an appointment with [facility] as well as [facility]. He stated that he is not interested in [facility]. If he does stay with Papi (and his ), that patient stated that the stay would be brief (1-2 weeks) while seeking other housing arrangements. In addition to this conversation, the patient and this race and sports book writer attempted to call [facility] to inquire about their services, however, there was no answer. Patient was offered the number, which he refused. This race and sports book writer spoke with Dr. Head regarding this case, which will be further explored during team on Tuesday with Dr. Doran. A message has also been left for Dr. Doran regarding the above meeting. As discussed with Dr. Head, patient was informed that his sister would need to be aware of the plan for him to stay with them. Patient agreed to call Papi before Tuesday to discuss this.
[2017-10-07 20:03] VITALS: BP 114/58
[2017-10-08 07:55] VITALS: BP 112/74
[2017-10-08 12:33] VITALS: BP 107/64
--- NOTE | 2017-10-08 12:52 | CP SOUTH PROGRESS NOTE PSYCH ---
Psych (Inpt) Progress Note Progress Note Include the following elements, when applicable: Involvement in the active treatment of the patient with behavioral observations of the patient and the patient's response to the treatment. Review of the ongoing treatment process in the context of the treatment plan. Indication of how multi-disciplinary staff members are carrying out the treatment plan. Plans for future interventions and recommendations for revision of the treatment plan. Liaison with other physicians/providers. Progress Note: Chart reviewed, progress discussed with nursing staff. Interviewed patient this morning. Pleasant, cooperative. Denies any current complaints. Reports mood is "better". Denies any SI or HI today. Denies any medication side effects. Reports pain is adequately controlled. Vital signs are within normal limits. No new laboratory results today. Mental status exam: man, somewhat older appearing than stated age, mildly disheveled, limited eye contact, no psychomotor agitation or retardation. Speech was within normal limits. Mood was "getting a little bit better ", affect was constricted, non-labile. Thought process was logical and linear. Content without SI or HI. No perceptual disturbances. Cognition was grossly intact. Insight and judgment were fair. A/P: Continues to make slow progress. No thoughts of suicide today. Continue present management as per primary team.
[2017-10-08 16:01] VITALS: BP 119/71
[2017-10-08 19:39] VITALS: BP 109/59
[2017-10-08 22:09] VITALS: BP 122/78
[2017-10-09 07:42] VITALS: BP 107/62
[2017-10-09 12:17] VITALS: BP 98/63
--- NOTE | 2017-10-09 13:00 | CP SOUTH PROGRESS NOTE PSYCH ---
Psych (Inpt) Progress Note Progress Note Include the following elements, when applicable: Involvement in the active treatment of the patient with behavioral observations of the patient and the patient's response to the treatment. Review of the ongoing treatment process in the context of the treatment plan. Indication of how multi-disciplinary staff members are carrying out the treatment plan. Plans for future interventions and recommendations for revision of the treatment plan. Liaison with other physicians/providers. Progress Note: Chart reviewed, progress discussed with nursing staff. Interviewed patient this morning. Pleasant, cooperative. Says he has some difficulty with falling and staying asleep. Reports mood is "okay, I just want to get out of here". Denies any SI or HI today. Denies any medication side effects. Reports pain is adequately controlled. Vital signs notable for mild hypotension, however, patient is spending the vast majority of his day in bed. No new laboratory results today. Mental status exam: man, somewhat older appearing than stated age, mildly disheveled, limited eye contact, no psychomotor agitation or retardation. Speech was within normal limits. Mood was "okay", affect was constricted, non- labile. Thought process was logical and linear. Content without SI or HI. No perceptual disturbances. Cognition was grossly intact. Insight and judgment were fair. A/P: Continues to make slow progress. No thoughts of suicide today. Some difficulty with sleep, though this does not match with the nursing sleep report. Continue present management as per primary team.
[2017-10-09 16:06] VITALS: BP 104/62
[2017-10-09 19:50] VITALS: BP 105/68
[2017-10-09 23:13] VITALS: BP 117/77
[2017-10-10 07:36] VITALS: BP 133/79
--- NOTE | 2017-10-10 08:13 | CP SOUTH PROGRESS NOTE PSYCH ---
Psych (Inpt) Progress Note Progress Note Vital Signs Date Time Temp Pulse B/P 10/10 0745 75 133/79 10/10 0736 95.9 75 133/79 10/09 2313 75 117/77 10/09 1950 97.0 63 105/[address] Montes's progress notes from the weekend. The patient's progress and treatment/aftercare plans were reviewed in the treatment team meeting this morning. Treatment team included: Nursing, social work, group therapy and activity therapy staff, and psychiatrist There are no new laboratory results today. Mental status exam: Jagjit reported that he may be able to stay with a friend He referred to the housing as "my old apartment" limited eye contact, no psychomotor agitation or retardation. Speech was within normal limits. Mood was "okay", affect was constricted, non-labile. Thought process was logical and linear. Jagjit denied feeling hopeless, denied thinking of suicide, and denied having violent thoughts or thoughts of homicide No perceptual disturbances. Cognition was grossly intact. Insight and judgment were fair. A/P: It appears that the patient is ready for discharge if we can confirm that he is welcome at "[his] old apartment"
[2017-10-10] MEDS ORDERED: CYMBALTA20 M1 PO (08:52)
[2017-10-10] MEDS ORDERED: OXYCODONE HCL5 M1 PO (08:52)
[2017-10-10] MEDS ORDERED: DICLOFENAC SODI75 M2 PO (08:52)
[2017-10-10] MEDS ORDERED: TRAMADOL HCL50 M1 PO (08:52)
[2017-10-10] MEDS ORDERED: DIAZEPAM5 M1 PO (08:52)
[2017-10-10] MEDS ORDERED: ASPIRIN81 M4 PO (08:52)
--- NOTE | 2017-10-10 08:57 | Patient Discharge Instructions ---
Psych Discharge Inst General Discharge Information Reason for Admission: The patient reportedly called 911 because and told the dairy processing equipment operator that he wanted to kill himself. When he arrived in the emergency room his chief complaint was still "I still want to kill myself." Psy Discharge Primary Diag+ Unspecified Depressive Di Summary Tests/Major Procedures Lab Cholesterol 130 MG/DL 09/29/17 0606 HDL Cholesterol 38 mg/dL L 09/29/17 0606 LDL Cholesterol, Calc 60 mg/dL L 09/29/17 0606 Total PSA 2.69 ng/mL 09/26/17 0903 Triglycerides 160 mg/dL H 09/29/17 0606 U Benzodiazepines Scrn > 800 NG/ML H 09/24/17 0826 Studies Pending at MI: None Patient Instructions Contact Information Your Psychiatrist on [facility] was Bert Doran MD * If you are experiencing an emergency related to this hospitalization, please call [phone] to contact the treating psychiatrist or the psychiatrist-on- call. * To Request a copy of your medical records, please contact the Medical Records Department at [phone]. * To request results of studies pending at the time of discharge, please call [phone]. * Continue your Medications until directed to stop by your Healthcare provider. General Medication Information Please continue to take your new medications and your continued home medications , unless otherwise indicated on your discharge medication list, or unless directed by your MD or FITTING ROOM ATTENDANT to stop them. Special Instructions Diet Regular Activity As Tolerated - Tobacco Use Treatment Offered Post DC Medications Offered: Refused Tob Medication Tx Post DC Tobacco Treatment Plan: Refused Tobacco Tx Pgm - EtOH/Drug Use D/O Treatment Offered Post DC Medications Offered: NA-No EtOH/Drug Use D/O Post DC EtOH/SubAbuse TX Plan: NA-No EtOH/Drug Use D/O Metabolic Screening ([X]) Not Applicable, patient not on a neuroleptic. Advance Directives Does the Patient have Medical Advance Directives No/Refused further info Does Pt have Psychiatric Advance Directives? No/Refused further info Does Patient have a Designated Surrogate Decision Maker: No Information About Psychiatric Advance Directives Provided? Refused Discharge Plan Post Hospital Treatment Plan: See Referrals Section
[2017-10-10 12:17] VITALS: BP 136/76
--- NOTE | 2017-10-10 17:37 | SOCIAL WORKER PROG NOTE PSYCH ---
Social Work Progress Note Progress Note 10:05am This loan underwriter met with patient. He described his mood as "ok" and denied SI/HI/AH /VH. Patient stated that he will be staying with his brother in [place], and sister, paul Nelson with the plan to move into an apartment in [place] tomorrow with his friend Yovanny Leigh ([address] [place] [address]). Patient was informed that he will be contacted by a socially responsible investment adviser in the next few days to follow up as a post-discharge phone call. He provided the following cell phone number: [phone]. Patient stated that they could also contact his brother in [place], and would inform [place] of this call. This loan underwriter assisted patient in identifying a safety plan: "I would go to the hospital again." He was informed that he would be provided with crisis numbers and warm lines upon discharge, which he was agreeable to utilizing. Patient accepted the following appointments with [facility]PS: - 10/11/17 with Miriam Dobbins at 10:30am - 10/19/[address] Lopez at 5pm for a medication appointment Patient requested that this loan underwriter not schedule an appointment with [facility] as he would prefer to schedule it himself. He was provided with their number as well as [facility]. He was reminded that he would need to attend the appointment with [facility] before engaging in services with A. Patient stated that he did not need any other referrals at this time. 11:40am This loan underwriter and patient contacted his brother in , [place], regarding transportation today. [place] stated that he would provide transportation to his and his 's (Leslie/patient's sister) home with the plan for the patient to go to [place] tomorrow morning. [place] was informed of the patient's appointments with OPS. [place] did not have any concerns about the patient discharging today. 12:57pm Patient's sister, Leslie, contacted this loan underwriter by phone. Patient attended the call and informed Leslie that [place] would be providing transportation home. Leslie confirmed that the patient will be spending the night at their home with the plan for the patient to move to [place] tomorrow. She described Yovanny Leigh as a "close family friend." Faxed Referral(s) Referred To: [facility] Transition of Care Documents sent: Health Summary Faxed to: [facility] Fax #: [phone] Faxed by: Moriah Mahan LCSW Date faxed: 10/10/17 Time Faxed: [phone]
== END 2017-10-10 13:24 | DRG 754 ==
LOC: ERH 07:52 → CP SOUTH 09-27 17:57 → ERHI 09-27 17:57 → ENTRNSPT 09-27 18:33 → CP SOUTH 09-27 18:34 → CMPTRNSPT 09-27 19:00 → CP SOUTH 09-28 08:45
PROVIDERS: Emergency Medicine; Hospitalist
DX: F32.9 Major depressive disorder, single episode, unspecified (principal)
CPT/HCPCS: 36415; 80307; 81001; 81003; G0463; G0480; J3490